=== PATIENT | female | born 1990 | race Caucasian/White ===

== ENCOUNTER 2021-07-25 00:14 | Emergency (ER) | payer MEDICAID ==
[~2021-07-25] VITALS: Ht 154.9 cm; Wt 64.0 kg
[2021-07-25 04:05] LABS: BASOPHILS % 0.6 % (0.0-2.0); EOSINOPHILS % 1.9 % (0.0-5.0); HEMATOCRIT. 35.1 % (36.0-48.0); HEMOGLOBIN. 11.7 g/dL (12.0-16.0); LYMPHOCYTES % 30.3 % (20.0-50.0); MEAN CORPUSCULAR HEMOGLOBIN 28.6 pg (28.0-32.0); MEAN CORPUSCULAR VOLUME 85.8 fL (81.0-99.0); MONOCYTES % 9.2 % (2.0-8.0); PLATELET 218 x1000/uL (130-400); RED CELL DISTRIBUTION WIDTH 14.1 % (11.6-14.6)
[2021-07-25 04:14] LABS: CHLORIDE 108 mEq/L (98-107)
[2021-07-25] MEDS ORDERED: ONDA4TAB5 MT (05:15)
[2021-07-25] MEDS ORDERED: IBUP-2028 MT (05:15)
[2021-07-25 05:37] VITALS: BP 117/66
== END 2021-07-25 06:10 | disposition home or self-care (01) ==
LOC: ER 00:14
DX: S06.0X9A Concussion with loss of consciousness of unspecified duration, initial encounter (principal); W17.89XA Other fall from one level to another, initial encounter; Y93.89 Activity, other specified; Y92.89 Other specified places as the place of occurrence of the external cause; Y99.8 Other external cause status
CPT/HCPCS: 36415; 71045; 80053; 81025; 84484; 85025; 85379; 93005; 99285